=== PATIENT | male | born 2000 | race Caucasian/White ===

== ENCOUNTER 2021-10-19 00:01 | Emergency (ER) | payer SELFPAY ==
[~2021-10-19] VITALS: Ht 180.3 cm; Wt 84.5 kg
[~2021-10-19 00:01] MED LIST: AMOX-358 PO; IBUP-1780 PO; TRM50T PO; ibuprofen 600mg tab PO
[2021-10-19 00:07] VITALS: BP 143/81
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
[2021-10-19] MEDS ORDERED: HYDROcodone/APAP 5 MG/325 MG (LORTAB) TAB PO ONE (00:45)
--- NOTE | 2021-10-19 07:01 | Diagnostic Imaging Report ---
INDICATION: Trauma with pain 3 views were obtained FINDINGS: The alignment is normal. There is no fracture or dislocation. The soft tissues are unremarkable. IMPRESSION: No focal abnormality on the left hand. Dictated by: Dictated on workstation # [id number]
== END 2021-10-19 00:40 | disposition home or self-care (01) ==
LOC: EDUNIT# 00:01 → EDBD 00:05 → ER FS 00:05
DX: S69.92XA Unspecified injury of left wrist, hand and finger(s), initial encounter (principal); F17.210 Nicotine dependence, cigarettes, uncomplicated; W22.8XXA Striking against or struck by other objects, initial encounter; Y92.143 Cell of prison as the place of occurrence of the external cause
CPT/HCPCS: 73130

== ENCOUNTER 2021-10-22 00:55 | Emergency (ER) | payer SELFPAY ==
[~2021-10-22] VITALS: Ht 180 cm; Wt 90.7 kg
[2021-10-22 01:00] VITALS: BP 155/84
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
[2021-10-22] MEDS ORDERED: LIDOCAINE/EPI 2% 1:100,00 (XYLOCAINE) 20 ML VIAL INJ STA (01:11)
[2021-10-22] MEDS ORDERED: AMOX-355 PO (02:23)
[2021-10-22] MEDS ORDERED: AUGMENTIN 875 MG TAB (AMOXICILLIN/CLAVULANATE) PO STA (02:31)
[2021-10-22] MEDS ORDERED: AUGMENTIN 875 MG TAB (AMOXICILLIN/CLAVULANATE) ONE (02:31)
== END 2021-10-22 02:43 | disposition home or self-care (01) ==
LOC: EDUNIT# 00:55 → ER FS 00:58
DX: S61.211A Laceration without foreign body of left index finger without damage to nail, initial encounter (principal); W45.8XXA Other foreign body or object entering through skin, initial encounter
CPT/HCPCS: 99283